=== PATIENT | female | born 1980 | race African-American/Black ===

== ENCOUNTER → 2017-01-14 | Outpatient (CLI) | payer OTHER ==
[~2017-01-14] MED LIST: ACET50TA PO; COLA100C5 PO; IBUP-1114 PO; INSUNSD SC; INSURSD SC; OXYC1TAB23 PO; PRENTAB9 PO; ZOFR20TA PO
[2017-01-14 13:41] LABS: MEAN CORPUSCULAR HEMOGLOBIN 27.9 pg (27.0-33.0); MEAN CORPUSCULAR HGB CONC 33.1 g/dl (32.0-36.5); MEAN CORPUSCULAR VOLUME 84.1 fl (80.0-96.0); RED CELL DISTRIBUTION WIDTH 15.4 % (11.5-14.5); WHITE BLOOD COUNT 7.9 K/mm3 (4.0-10.0)
[2017-01-14 13:57] LABS: ALT/SGPT 13 U/L (12-78); AST/SGOT 12 U/L (15-37); BILIRUBIN,TOTAL 0.2 MG/DL (0.2-1.0); CREATININE FOR GFR 0.61 MG/DL (0.55-1.02); GLOMERULAR FILTRATION RATE > 60.0 (>60); URIC ACID 4.4 MG/DL (2.6-6.0)
== END ==
LOC: M LAB 12:43
PROVIDERS: ATTEND Advanced Practice Midwife
DX: O13.3 Gestational [pregnancy-induced] hypertension without significant proteinuria, third trimester (principal); Z3A.00 Weeks of gestation of pregnancy not specified

== ENCOUNTER 2017-01-18 11:05 | Observation (INO) | payer OTHER ==
[~2017-01-18] VITALS: Ht 154.9 cm; Wt 97.0 kg
[2017-01-18 12:12] VITALS: BP 114/72
[2017-01-18 12:13] VITALS: BP 121/80
[2017-01-18 12:23] LABS: MEAN CORPUSCULAR HEMOGLOBIN 27.5 pg (27.0-33.0); MEAN CORPUSCULAR HGB CONC 32.3 g/dl (32.0-36.5); RED CELL DISTRIBUTION WIDTH 15.5 % (11.5-14.5); WHITE BLOOD COUNT 7.6 K/mm3 (4.0-10.0)
[2017-01-18 12:28] VITALS: BP 121/80
[2017-01-18] MEDS ORDERED: INSUNSD SC (12:37)
[2017-01-18] MEDS ORDERED: ACET50TA PO (12:37)
[2017-01-18] MEDS ORDERED: INSURSD SC (12:37)
[2017-01-18] MEDS: HumuLIN R (REGULAR) INSULIN (NovoLIN R) **100U/ML** PER UNIT SQ SCH (12:42)
[2017-01-18] MEDS: HumuLIN N INSULIN (NovoLIN N) PER UNIT SC SCH (12:42)
[2017-01-18 12:43] VITALS: BP 119/73
[2017-01-18 13:02] LABS: ALT/SGPT 18 U/L (12-78); AST/SGOT 15 U/L (15-37); BILIRUBIN,TOTAL 0.2 MG/DL (0.2-1.0); CREATININE FOR GFR 0.57 MG/DL (0.55-1.02); GLOMERULAR FILTRATION RATE > 60.0 (>60); URIC ACID 5.5 MG/DL (2.6-6.0)
[2017-01-18] MEDS: ACETAMINOPHEN 500 MG TAB PO PRN ×2 (13:11→20:22)
[2017-01-18 17:30] VITALS: BP 119/75
[2017-01-18] MEDS ORDERED: HumuLIN R (REGULAR) INSULIN (NovoLIN R) **100U/ML** PER UNIT SQ SCH (18:00)
[2017-01-18] MEDS ORDERED: HumuLIN N INSULIN (NovoLIN N) PER UNIT SC SCH ×2 (18:00→21:00)
--- NOTE | 2017-01-18 20:39 | IPNPDOC ---
Text Note Date of Service The patient was seen on 01/18/17. NOTE SUBJECTIVE: Patient is a 36 year old female who is a at 36.6 weeks gestation with and MAYRA of 02/09/2017 based off of LMP and consistent with her 1st trimester ultrasound. She initiated care in her 1st trimester at [facility]. Her has been complicated by: obesity, Type II diabetes-now insulin controlled, and preeclampsia. Patient's last 24 hour urine showed a total protein of 378. She presented to the office today for a NST, which was reactive , with another elevated BP and complaints of a headache. She reports this headache for the last 3 days that is now not resolved with Tylenol. States today the pain has caused her to be very nauseous and she has been unable to eat. Denies leaking of fluid or vaginal bleeding. Reports active movement. Denies visual changes or epigastric pain. OBJECTIVE: General: Alert and oriented x3. Respiratory: rate regular. No use of accessory muscles. Abdomen: Gravid. Not tender with palpation. Extremities: bilateral generalized edema in lower ankles and feet. Shins +1 pitting edema. Reflexes 2+. VS: see below. Labs: see below. ASSESSMENT: IUP at 36.6 weeks gestation, Type II diabetes: insulin controlled, preeclampsia PLAN: Patient admitted for a 23 hour observation. Saline lock to be placed. 2200 ADA diet. Insulin ordered. Fasting an 2 hour post prandial fingersticks to be done. OOB ad neftali. monitoring and vital signs per policy. Labs ordered for now and in am. Patient to start [address] Boston consulted for plan of care. Education done with patient that if her labs continue to change, her BPs get worse, or her symptoms get worse, that an induction of labor may be the safest course. Reviewed risks/benefits/ and alternatives with patient and if an IOL is recommended. VS,Fishbone, I+O VS, Fishbone, I+O Laboratory Tests 01/18/17 11:41 Red Blood Count 3.90 L, Mean Corpuscular Volume 85.0, Mean Corpuscular Hemoglobin 27.5, Mean Corpuscular Hemoglobin Concent 32.3, Red Cell Distribution Width 15.5 H, Aspartate Amino Transf (AST/SGOT) 15, Alanine Aminotransferase (ALT/SGPT) 18, Lactate Dehydrogenase 206, Total Bilirubin 0.2, Uric Acid 5.5 Item Value Date Time Creatinine 0.57 MG/DL 01/18/17 1141 Glomerular Filtration Rate > 60.0 01/18/17 1141 Uric Acid 5.5 MG/DL 01/18/17 1141 Total Bilirubin 0.2 MG/DL 01/18/17 1141 Aspartate Amino Transf (AST/SGOT) 15 U/L 01/18/17 1141 Alanine Aminotransferase (ALT/SGPT) 18 U/L 01/18/17 1141 Lactate Dehydrogenase 206 U/L 01/18/17 1141 Item Value Date Time Urine Random Creatinine 259.0 MG/DL 01/18/17 1141 Urine Random Total Protein 55.3 MG/DL H 01/18/17 1141 Vital Signs Date Time Temp Pulse Resp B/P (MAP) Pulse Ox O2 Delivery O2 Flow Rate FiO2 01/18/17 17:30 74 119/75 (90) JEFFY MORRELL CNM Jan 18, 2017 20:39
[2017-01-18 20:45] VITALS: BP 125/74
[2017-01-19] VITALS (7 sets, daily range): BP systolic 115–126; BP diastolic 57–76
[2017-01-19 06:46] LABS: MEAN CORPUSCULAR HEMOGLOBIN 27.2 pg (27.0-33.0); MEAN CORPUSCULAR HGB CONC 32.2 g/dl (32.0-36.5); MEAN CORPUSCULAR VOLUME 84.3 fl (80.0-96.0); RED CELL DISTRIBUTION WIDTH 15.8 % (11.5-14.5); WHITE BLOOD COUNT 6.9 K/mm3 (4.0-10.0)
[2017-01-19 06:54] LABS: ALT/SGPT 15 U/L (12-78); AST/SGOT 11 U/L (15-37); BILIRUBIN,TOTAL 0.2 MG/DL (0.2-1.0); CREATININE FOR GFR 0.63 MG/DL (0.55-1.02); GLOMERULAR FILTRATION RATE > 60.0 (>60); URIC ACID 5.2 MG/DL (2.6-6.0)
[2017-01-19] MEDS: ACETAMINOPHEN 500 MG TAB PO PRN (07:40)
[2017-01-19] MEDS: HumuLIN N INSULIN (NovoLIN N) PER UNIT SC SCH (08:31)
[2017-01-19] MEDS: HumuLIN R (REGULAR) INSULIN (NovoLIN R) **100U/ML** PER UNIT SQ SCH (08:31)
[2017-01-19] MEDS ORDERED: NORCO, ANEXSIA 5/325MG TABLET (HYDROcodone/ACETAMINOPHEN) PO ONE (12:15)
--- NOTE | 2017-01-19 20:27 | DS.PDOC ---
Discharge Summary General Date of Admission Jan 18, 2017 at 13:30 Date of Discharge December 19, 2016 at 1730. Attending Physician: JEFFY MORRELL [facility] Specialist/Consultants Involve: Jose Boston DO Discharge Summary PROCEDURES PERFORMED DURING STAY: None. ADMITTING 23 hour OBS DIAGNOSES: 1. IUP at 36.6 weeks gestation. 2. Type II diabetes-insulin. 3. Preeclampsia DISCHARGE DIAGNOSES: 1. IUP at 37 weeks gestation 2. Type II diabetes-insulin. 3. Preeclampsia. COMPLICATIONS/CHIEF COMPLAINT: Preeclampsia-headache HISTORY OF PRESENT ILLNESS: Patient is a who is now 37 weeks gestation. She was sent to L&D with complaints of a headache and a slightly elevated BP. She has been monitored and repeat labs and a 24 hour urine were done. The patient continued to complain of a constant, dull headache. She has taken Tylenol with minimal relief. Her headache is a constant 5/10 and decreases to a 3/10 on the pain scale. She refused [place] to help with her headache. She denies visual changes or epigastric pain. Her labs have changed very little in [address] Boston consulted on plan of care and the decision was made to have patient discharged to home and for her to follow up on Monday for evaluation and a repeat BP. Patient has not had one elevated BP since she has been on L&D for observation. DISCHARGE MEDICATIONS: Please see below. ALLERGIES: Please see below. PHYSICAL EXAMINATION ON DISCHARGE: VITAL SIGNS: Please see below. GENERAL: Awake and alert. RESPIRATORY EXAMINATION: Respirations regular. No use of accessory muscles. ABDOMINAL EXAMINATION: Gravid EXTREMITIES: Bilateral generalized edema in feet and ankles. +1 pitting edema on shins. LABORATORY DATA: Please see below. ACTIVITY: As tolerated. DIET: carbohydrate controlled. DISCHARGE INSTRUCTIONS: 1. Discharge to home. 2. Saline lock to be removed. Patient to follow up on Monday for OB appointment. 3. Extensive education done with patient in regards to worsening or changing symptoms. Reviewed and reiterated preeclamptic signs and symptoms. Education done on access to care, labor signs and symptoms, kick counts, vaginal bleeding, and other danger signs patient needs to notify providers of. Patient verbalized understanding of all information that was provided. DISCHARGE CONDITION: Stable. Vital Signs/I&Os Vital Signs Date Time Temp Pulse Resp B/P (MAP) Pulse Ox O2 Delivery O2 Flow Rate FiO2 01/19/17 17:23 63 120/75 (90) 01/19/17 14:25 18 01/19/17 12:21 97.7 Laboratory Data Labs 24H Laboratory Tests 2 01/18/17 20:08: Bedside Glucose (Misc Panel) 125H 01/19/17 06:23: Glomerular Filtration Rate > 60.0, Creatinine 0.63, Aspartate Amino Transf (AST/ SGOT) 11L, Alanine Aminotransferase (ALT/SGPT) 15, Lactate Dehydrogenase 171, Total Bilirubin 0.2, Uric Acid 5.2 01/19/17 09:54: Bedside Glucose (Misc Panel) 138H 01/19/17 11:15: Urine Total Volume 1800, Urine Creatinine 96.6, Urine Creatinine 24 Hour 1738.8 , Urine Total Protein 24 Hour 388.8H, Urine Total Protein 21.6H 01/19/17 15:00: Bedside Glucose (Misc Panel) 127H Item Value Date Time Urine Total Volume 1800 ML 01/19/17 1115 Urine Creatinine 96.6 MG/DL 01/19/17 1115 Urine Creatinine 24 Hour 1738.8 MG/24HR 01/19/17 1115 Urine Total Protein 24 Hour 388.8 MG/24HR H 01/19/17 1115 Urine Total Protein 21.6 MG/DL H 01/19/17 1115 Item Value Date Time Creatinine 0.63 MG/DL 01/19/17 0623 Glomerular Filtration Rate > 60.0 01/19/17 0623 Uric Acid 5.2 MG/DL 01/19/17 0623 Total Bilirubin 0.2 MG/DL 01/19/17 0623 Aspartate Amino Transf (AST/SGOT) 11 U/L L 01/19/17 0623 Alanine Aminotransferase (ALT/SGPT) 15 U/L 01/19/17 0623 Lactate Dehydrogenase 171 U/L 01/19/17 0623 CBC/BMP Laboratory Tests 01/19/17 06:23 Red Blood Count 3.74 L, Mean Corpuscular Volume 84.3, Mean Corpuscular Hemoglobin 27.2, Mean Corpuscular Hemoglobin Concent 32.2, Red Cell Distribution Width 15.8 H, Aspartate Amino Transf (AST/SGOT) 11 L, Alanine Aminotransferase (ALT/SGPT) 15, Lactate Dehydrogenase 171, Total Bilirubin 0.2, Uric Acid 5.2 FSBS Laboratory Tests Test 01/18/17 20:08 01/19/17 09:54 01/19/17 15:00 Range/Units Bedside Glucose (Misc Panel) 125 138 127 70-105 MG/DL Discharge Medications Miscellaneous Medications Acetaminophen (Mapap) 500 Mg Tab, 1,000 MG PO, (Reported) Insulin Human NPH (Humulin N) 1 Units/0.01 Ml Susp, 12 UNITS SC, (Reported) Insulin Human Regular (Humulin R) 1 Units/0.01 Ml Soln, 30 UNITS SC, (Reported) Allergies Coded Allergies: Metronidazole (Verified Allergy, Intermediate, 01/18/17) Povidone Iodine (Verified Allergy, Intermediate, 01/18/17) Sulfa Antibiotics (Verified Allergy, Intermediate, 01/18/17) JEFFY MORRELL CNM Jan 19, 2017 20:17
--- NOTE | 2017-01-19 20:40 | IPNPDOC ---
Text Note Date of Service The patient was seen on 01/19/17 at 0830. NOTE Subjective: Patient reports she still has a headache. The headache has not changed in intensity or location. Reports pain 3/10 now after taking 1000 mg of Tylenol PO. Denies visual changes. Denies contractions. Reports active movement. Denies leaking of fluid or vaginal bleeding. Objective: VS stable. Category I FHR tracing. Neuro: A+Ox3. Respiratory: lungs clear bilaterally. No use of accessory muscles. Regular rate. Abdomen: gravid. Bilateral extremities: generalized edema with 1+ pitting on shins. Reflexes: 2+ patellar. Assessment: IUP at 37 weeks gestation, type II diabetes: insulin, preeclampsia Plan: Awaiting 24 hour urine. Reviewed plan, which was collaborated with Dr. Boston, with patient that if 24 hour urine is worse than it was 5 days ago that we would talk about induction of labor due to worsening preeclampsia. JEFFY MORRELL CNM Jan 19, 2017 20:40
== END 2017-01-19 17:25 | disposition home or self-care (01) ==
LOC: M LDO 11:05 → UNDOADMOB 13:30 → M LDI 13:30 → UNDODISOB 01-19 17:25
PROVIDERS: ADMIT Advanced Practice Midwife; ATTEND Advanced Practice Midwife
DX: O14.03 Mild to moderate pre-eclampsia, third trimester (principal); O24.113 Pre-existing type 2 diabetes mellitus, in pregnancy, third trimester; Z3A.36 36 weeks gestation of pregnancy; Z79.4 Long term (current) use of insulin; Z88.2 Allergy status to sulfonamides; Z88.3 Allergy status to other anti-infective agents; Z88.8 Allergy status to other drugs, medicaments and biological substances

== ENCOUNTER 2017-01-20 07:04 | Inpatient (IN) | payer OTHER ==
[2017-01-20] VITALS (21 sets, daily range): BP systolic 89–140; BP diastolic 53–87
[~2017-01-20] VITALS: Ht 154.9 cm; Wt 96.0 kg
[~2017-01-20 07:04] MED LIST changes: -COLA100C5 PO; -IBUP-1114 PO; -OXYC1TAB23 PO; -PRENTAB9 PO; -ZOFR20TA PO
[2017-01-20] MEDS ORDERED: INSULIN IV RATE CHANGE DOCUMENTATION ML/HR XX SCH (08:15)
[2017-01-20 08:38] LABS: MEAN CORPUSCULAR HEMOGLOBIN 27.2 pg (27.0-33.0); MEAN CORPUSCULAR HGB CONC 32.5 g/dl (32.0-36.5); MEAN CORPUSCULAR VOLUME 83.6 fl (80.0-96.0); RED CELL DISTRIBUTION WIDTH 15.8 % (11.5-14.5); WHITE BLOOD COUNT 7.7 K/mm3 (4.0-10.0)
[2017-01-20] MEDS ORDERED: OXYTOCIN DRIP 30 UNITS in APPROPRIATE DILUENT 1 EA IV SCH ×2 (08:45→15:42)
[2017-01-20] MEDS: PRENATAL VITAMINS CHEWABLE TABLET PO SCH (09:00)
[2017-01-20] MEDS ORDERED: INSULIN HUMAN REGULAR 100 UNITS in NS 99 ML IV SCH (09:00)
[2017-01-20 09:03] LABS: ALBUMIN 2.4 GM/DL (3.2-5.2); ALBUMIN/GLOBULIN RATIO 0.75 (1.00-1.93); ALKALINE PHOSPHATASE 137 U/L (45-117); ALT/SGPT 14 U/L (12-78); ANION GAP 11 MEQ/L (8-16); AST/SGOT 14 U/L (15-37); BILIRUBIN,TOTAL 0.2 MG/DL (0.2-1.0); BLOOD UREA NITROGEN 9 MG/DL (7-18); CALCIUM LEVEL 8.2 MG/DL (8.5-10.1); CARBON DIOXIDE LEVEL 20 MEQ/L (21-32); CHLORIDE LEVEL 111 MEQ/L (98-107); GLOMERULAR FILTRATION RATE > 60.0 (>60); GLUCOSE, FASTING 71 MG/DL (70-105); POTASSIUM SERUM 4.1 MEQ/L (3.5-5.1); SODIUM LEVEL 142 MEQ/L (136-145); TOTAL PROTEIN 5.6 GM/DL (6.4-8.2)
[2017-01-20] MEDS ORDERED: FENTANYL 2MCG/ML ROPIVACAINE 0.2% IN 0.9% NACL 200ML IVBAG As Ordered ONE (09:20)
[2017-01-20] MEDS: NS 1,000 ML IV SCH ×2 (09:29→12:59)
[2017-01-20] MEDS ORDERED: ePHEDrine SULFATE 25 MG/5 ML(5MG/ML) SYRINGE IV PRN (10:00)
[2017-01-20] MEDS ORDERED: FENTANYL/ROPIVACAINE/NACL BAG 200 ML EPIDURAL SCH (10:00)
[2017-01-20] MEDS ORDERED: ONDANSETRON 4MG/2ML VIAL (J2405) IV PRN ×2 (10:00→15:45)
[2017-01-20] MEDS ORDERED: LACTATED RINGER'S 1000 ML IV PRN (10:00)
[2017-01-20] MEDS ORDERED: NALOXONE INJ 0.4 MG/1 ML VIAL (J2310) IV PRN (10:00)
[2017-01-20] MEDS ORDERED: diphenhydrAMINE INJ 50MG/ML VIAL (J1200) IV PRN (10:00)
[2017-01-20] MEDS ORDERED: EPIDURAL/PCA KEYS XX PRN (10:00)
[2017-01-20] MEDS ORDERED: EPIDURAL COMMENT XX SCH (10:00)
[2017-01-20] MEDS ORDERED: REFRIGERATOR IV KEYS XX PRN (10:00)
[2017-01-20] MEDS ORDERED: METHYLERGONOVINE MALEATE 0.2 MG/ML VIAL (J2210) As Ordered ONE (15:19)
[2017-01-20 15:28] LABS: CORD GAS ABE A -1.8; CORD GAS HCO3 A 26.1 MEQ/L; CORD GAS O2 SAT A 62.7 %; CORD GAS PCO2 A 58.2 mmHg; CORD GAS PH A 7.27 UNITS; CORD GAS PO2 A 27.8 mmHg; CORD GAS SBC A 22.2 MEQ/L; CORD GAS TCO2 A 27.9 MEQ/L
[2017-01-20 15:31] LABS: CORD GAS HCO3 V 21.9 MEQ/L; CORD GAS O2 SAT V 83.5 %; CORD GAS PCO2 V 42.9 mmHg; CORD GAS PH V 7.326 UNITS; CORD GAS PO2 V 40.4 mmHg; CORD GAS SBC V 20.9 MEQ/L; CORD GAS TCO2 V 23.2 MEQ/L
[2017-01-20] MEDS ORDERED: DOCUSATE SODIUM 100 MG CAP PO PRN (15:45)
[2017-01-20] MEDS ORDERED: MEASLES,MUMPS,RUBELLA VACCINE INJ (MMR-II) (90707) SC SCH (15:45)
[2017-01-20] MEDS ORDERED: RHOGAM 300 MCG (1500 IU) INJ (J2790) IM SCH (15:45)
[2017-01-20] MEDS ORDERED: DIBUCAINE 1% OINTMENT 30GM TOP PRN (15:45)
[2017-01-20] MEDS ORDERED: ANUSOL HC CREAM 30GM TOP PRN (15:45)
[2017-01-20] MEDS ORDERED: METHYLERGONOVINE MALEATE 0.2 MG/ML VIAL (J2210) IM STA (16:20)
[2017-01-20] MEDS: METHYLERGONOVINE MALEATE 0.2 MG TAB PO SCH ×2 (16:57→21:00)
[2017-01-20] MEDS: ACETAMINOPHEN 500 MG TAB PO PRN ×2 (16:57→23:45)
[2017-01-20] MEDS: metFORMIN (GLUCOPHAGE) 1000 MG TABLET PO SCH (18:14)
[2017-01-20] MEDS: IBUPROFEN 800 MG TAB PO PRN (19:33)
--- NOTE | 2017-01-20 22:47 | HPE ---
DATE OF ADMISSION: 01/20/2017 HISTORY OF PRESENT ILLNESS: Frances is a 36-year-old female 9, para 4-0-4-4 with an estimated date of confinement (EDC) of 02/09/2017, estimated gestational age (EGA) 37-2/7 weeks gestation, who has a longstanding history of type 2 diabetes which was poorly controlled during this . She presented to labor and delivery with spontaneous rupture of membranes. The patient in the last week or two of her has also developed hypertension which has been ruled out for preeclampsia. Her last 24-hour urine collection was approximately 347. Upon admission, no bleeding. Good movement. Her record reviewed. complicated by type 2 diabetes and also mild preeclampsia. LABORATORY DATA: Blood type is B positive, rubella immune, hepatitis negative, HIV negative, GC/chlamydia negative, GBS negative. PAST MEDICAL HISTORY: Significant for history of mastitis, -induced hypertension, rule out preeclampsia. PAST SURGICAL HISTORY: T&A. SOCIAL HISTORY: The patient is . Denies any alcohol, drugs or cigarette smoking. REVIEW OF SYSTEMS: Unremarkable. FAMILY HISTORY: Significant for hypertension, diabetes. MEDICATIONS: vitamins, insulin fast-acting and slow release. Use of sulfa drugs and Flagyl. PHYSICAL EXAMINATION: Obese female in no acute distress. ABDOMEN: Soft, nontender, nondistended. EXTREMITIES: No clubbing, cyanosis. Plus one to two lower extremity edema with deep tendon reflexes (DTR) 2/4 bilaterally. VAGINAL EXAM: Gross rupture of membrane, clear fluid, 1-2 cm dilated. 50% effaced cervix, fetus in vertex position. Tracing reviewed. category one tracing with irregular contractions. ASSESSMENT: 1. Intrauterine at 37 weeks gestation with gross rupture of membrane. 2. Type 2 diabetes, currently on insulin, poorly controlled. 3. -induced hypertension (PIH) with superimposed preeclampsia. PLAN: Admit the patient to labor and delivery. Given gross rupture of membrane, would proceed with Pitocin and Higgins bulb induction. Risk and benefit discussed with the patient. Insulin drip will be started to help maintain her blood sugars. Pain management also discussed. The patient opts for an epidural. Will continue to monitor. Anticipate delivery. NICHOL[facility]YES MEMORIAL HOSPITALJosi
[2017-01-21] MEDS: IBUPROFEN 800 MG TAB PO PRN ×3 (04:35→21:30)
[2017-01-21 05:40] VITALS: BP 124/72
[2017-01-21 06:49] LABS: MEAN CORPUSCULAR HEMOGLOBIN 27.5 pg (27.0-33.0); MEAN CORPUSCULAR HGB CONC 32.5 g/dl (32.0-36.5); MEAN CORPUSCULAR VOLUME 84.6 fl (80.0-96.0); RED CELL DISTRIBUTION WIDTH 15.8 % (11.5-14.5); WHITE BLOOD COUNT 6.5 K/mm3 (4.0-10.0)
[2017-01-21 07:07] LABS: ANION GAP 10 MEQ/L (8-16); BLOOD UREA NITROGEN 12 MG/DL (7-18); CALCIUM LEVEL 8.1 MG/DL (8.5-10.1); CARBON DIOXIDE LEVEL 22 MEQ/L (21-32); CHLORIDE LEVEL 111 MEQ/L (98-107); CREATININE FOR GFR 0.78 MG/DL (0.55-1.02); GLOMERULAR FILTRATION RATE > 60.0 (>60); GLUCOSE, FASTING 89 MG/DL (70-105); POTASSIUM SERUM 3.8 MEQ/L (3.5-5.1); SODIUM LEVEL 143 MEQ/L (136-145)
[2017-01-21] MEDS: metFORMIN (GLUCOPHAGE) 1000 MG TABLET PO SCH ×2 (07:34→18:22)
[2017-01-21] MEDS: PRENATAL VITAMINS CHEWABLE TABLET PO SCH (07:34)
[2017-01-21] MEDS: ONDANSETRON 4 MG TAB (S0181) PO PRN ×3 (07:57→18:22)
[2017-01-21] MEDS: METHYLERGONOVINE MALEATE 0.2 MG TAB PO SCH ×2 (09:22→14:10)
--- NOTE | 2017-01-21 10:29 | DN ---
DATE OF DELIVERY: 01/20/2017 Frances is a 36-year-old female, 9, para 4-0-4-4, who is admitted at 37 weeks' gestation with gross rupture of membranes. The patient has a history of type 2 diabetes, on insulin, not well controlled. She underwent a Higgins bulb Pitocin induction. Progressed to fully dilated. She then pushed and delivered a live female infant in right occiput anterior position with a nuchal cord times one. scores 9 and 9. weight 7 pounds 3 ounces. The placenta was delivered spontaneously. However, an extra lobe was found to be retained. 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 Manual extraction of pieces of the retained placenta was done, and the rest was then removed using an obstetrics (OB) curette. After removal of the lobe that stayed, there was still a small amount of retained placental tissue that could not be removed. However, the uterus was nice and firm with no excessive bleeding. One dose of Methergine was given prophylactically for bleeding. Good hemostasis noted. Estimated blood loss was 350 mL. The patient did receive Pitocin right after delivery of the placenta and the Methergine to control further bleeding.
[2017-01-21] MEDS: ACETAMINOPHEN 500 MG TAB PO PRN ×2 (14:10→22:47)
[2017-01-21 18:00] VITALS: BP 131/68
[2017-01-21] MEDS ORDERED: PERCOCET 5MG/325MG TAB PO PRN ×2 (23:15)
[2017-01-22 06:12] VITALS: BP 124/73
[2017-01-22] MEDS: ONDANSETRON 4 MG TAB (S0181) PO PRN (07:40)
[2017-01-22] MEDS: metFORMIN (GLUCOPHAGE) 1000 MG TABLET PO SCH (07:40)
[2017-01-22] MEDS: PRENATAL VITAMINS CHEWABLE TABLET PO SCH (07:40)
[2017-01-22] MEDS ORDERED: ADACEL/BOOSTRIX VACCINE (DIPHTH/PERTUSS/ACELL/TETANUS)0.5ML SYR (90715) IM ONE (09:00)
[2017-01-22] MEDS ORDERED: PRENTAB9 PO (12:29)
[2017-01-22] MEDS ORDERED: COLA100C5 PO (12:30)
[2017-01-22] MEDS ORDERED: IBUP-1114 PO (12:30)
[2017-01-22] MEDS ORDERED: ZOFR20TA PO (12:31)
[2017-01-22] MEDS ORDERED: OXYC1TAB23 PO ×2 (12:32→12:33)
== END 2017-01-22 12:45 | disposition home or self-care (01) | DRG 541 ==
LOC: M LDO 07:04 → M LDI 07:37 → M OBS 18:01
PROVIDERS: ADMIT Advanced Practice Midwife; ATTEND Obstetrics & Gynecology
PROC: 10E0XZZ Delivery of Products of Conception, External Approach (ICD-10-PCS; principal; 2017-01-20)
PROC: 10D17ZZ Extraction of Products of Conception, Retained, Via Natural or Artificial Opening (ICD-10-PCS; 2017-01-20)
DX: O24.12 Pre-existing type 2 diabetes mellitus, in childbirth (principal); E11.65 Type 2 diabetes mellitus with hyperglycemia; O14.04 Mild to moderate pre-eclampsia, complicating childbirth; Z3A.37 37 weeks gestation of pregnancy; O69.82X0 Labor and delivery complicated by other cord entanglement, without compression, not applicable or unspecified; O73.1 Retained portions of placenta and membranes, without hemorrhage; Z79.4 Long term (current) use of insulin; Z37.0 Single live birth

== ENCOUNTER → 2020-03-20 | Outpatient (REF) | payer OTHER ==
[~2020-03-20] MED LIST changes: -ACET50TA PO; +COLA100C5 PO; +IBUP-1114 PO; +MAPA500T2 PO; +OXYC1TAB23 PO; +PRENTAB9 PO; +ZOFR4TAB16 PO
[2020-03-20 19:48] LABS: MALB URINE SIEMENS 8.8 MG/L; MAU/CREAT RATIO 6.6 MCG/MG (0.0-30.0)
== END ==
LOC: M LAB REF 16:40
PROVIDERS: ATTEND Nurse Practitioner Family
DX: E11.65 Type 2 diabetes mellitus with hyperglycemia (principal)

== ENCOUNTER → 2021-05-20 | Outpatient (REF) | payer OTHER ==
[2021-05-20 17:14] LABS: BASO # 0.1 10^3/uL (0.0-0.2); BASO % 0.5 % (0.0-1.0); EOS % 0.4 % (0.0-3.0); HEMATOCRIT 39.9 % (36.0-47.0); HEMOGLOBIN 12.4 g/dl (12.0-15.5); LYMPH # 1.7 10^3/uL (1.5-5.0); LYMPH % 17.9 % (24.0-44.0); MEAN CORPUSCULAR HEMOGLOBIN 26.2 pg (27.0-33.0); MEAN CORPUSCULAR HGB CONC 31.1 g/dl (32.0-36.5); MEAN CORPUSCULAR VOLUME 84.2 fl (80.0-96.0); MONO # 0.6 10^3/uL (0.0-0.8); MONO % 5.8 % (2.0-8.0); NEUTROPHILS % 74.7 % (36.0-66.0); PLATELET COUNT, AUTOMATED 213 10^3/uL (150-450); RED BLOOD COUNT 4.74 10^6/uL (4.00-5.40); WHITE BLOOD COUNT 9.4 10^3/uL (4.0-10.0)
[2021-05-20 17:56] LABS: HEMOGLOBIN A1c 9.2 %
[2021-05-20 18:27] LABS: ALBUMIN 3.6 GM/DL (3.2-5.2); ALT/SGPT 31 U/L (12-78); BILIRUBIN,TOTAL 0.2 MG/DL (0.2-1.0); BLOOD UREA NITROGEN 11 MG/DL (7-18); CALCIUM LEVEL 8.9 MG/DL (8.5-10.1); CARBON DIOXIDE LEVEL 25 MEQ/L (21-32); CHLORIDE LEVEL 105 MEQ/L (98-107); CREATININE FOR GFR 0.84 MG/DL (0.55-1.30); FREE T4 1.09 NG/DL (0.76-1.46); GLOMERULAR FILTRATION RATE > 60.0 (>60); GLUCOSE, FASTING 229 MG/DL (70-100); HCG, SERUM QUANTITATIVE 24625 MIU/ML; HEPATITIS C VIRUS ABY INDEX < 0.0 INDEX (<0.8); HIV 1&2 SCREEN CENTAUR NEGATIVE (NEGATIVE); POTASSIUM SERUM 3.6 MEQ/L (3.5-5.1); SODIUM LEVEL 139 MEQ/L (136-145); TOTAL PROTEIN 6.7 GM/DL (6.4-8.2)
== END ==
LOC: M LAB REF 16:29
PROVIDERS: ATTEND Obstetrics & Gynecology
DX: O36.80X0 Pregnancy with inconclusive fetal viability, not applicable or unspecified (principal); Z32.01 Encounter for pregnancy test, result positive

== ENCOUNTER → 2021-06-03 | Outpatient (CLI) | payer OTHER ==
--- NOTE | 2021-06-03 10:18 | PFTRPT ---
Site: [facility], [address] [place] [address], [id number] ID: [id number] Name: SALLIE PINK Visit Date: 06/03/2021 Second ID: [id number] Referring Doctor: MANJINDER MARTIN Reviewing Doctor: Kg Michael MD Undertaker Helper: Augusto ANAYA RRT Age: 40 : 1980 Sex: Female Race: Black Height: 61.00 Inches Weight: 209.00 Lbs BSA: 1.92 Order IDs: [id number] Requested Test(s): <RESP-PFT.PFT B/A> Diagnosis: R06.00 test meet the ATS standards for acceptability and repeatability. Pt was given four puffs of albuterol for post bronchodilator. Review Status: Not Reviewed Pre-Bronch Post-Bronch Pred Actual %Pred Actual %Chng SPIROMETRY FVC (L) 2.78 3.01 108 3.18 5 FEV1 (L) 2.31 2.38 103 2.54 6 FEV1/FVC (%) 84 79 94 80 FEF 25% (L/sec) 5.18 3.85 74 4.12 6 FEF 50% (L/sec) 4.25 2.36 55 2.93 24 FEF 75% (L/sec) 1.70 1.01 59 1.39 37 FEF 25-75% (L/sec) 2.68 2.17 80 2.47 13 FEF Max (L/sec) 6.18 5.49 88 4.30 -21 FIVC (L) 3.09 3.23 4 FIF 50% (L/sec) 4.06 3.06 75 2.15 -29 FIF Max (L/sec) 3.31 3.38 2 MVV (L/min) 98 88 89 Expiratory Time (sec) 6.65 6.94 4 Back Extrap Vol (L) 0.06 0.07 16 Time To FEFmax (sec) 0.085 0.122 42 LUNG VOLUMES SVC (L) 3.19 3.19 99 IC (L) 2.08 2.83 136 ERV (L) 1.11 0.36 32 TGV (L) 2.52 2.00 79 RV (Pleth) (L) 1.41 1.64 116 TLC (Pleth) (L) 4.60 4.83 104 RV/TLC (Pleth) (%) 30 34 113 DIFFUSION DLCOunc (ml/min/mmHg) 22.79 21.26 93 DLCOcor (ml/min/mmHg) 22.79 22.80 100 DL/VA (ml/min/mmHg/L) 4.95 5.49 110 VA (L) 4.60 4.15 90 BHT (sec) 9.90 IVC (L) 3.13 TLC (SB) (L) 4.30 AIRWAYS RESISTANCE Raw (cmH2O/L/s) 1.86 1.06 56 Gaw (L/s/cmH2O) 1.03 0.95 91 sRaw (cmH2O*s) 4.76 2.25 47 sGaw (1/cmH2O*s) 0.20 0.45 222 BLOOD GASES Hgb (gm/dL) 11.4
== END ==
LOC: M CARPUL 09:37
PROVIDERS: ATTEND Nurse Practitioner Family
DX: R06.00 Dyspnea, unspecified (principal)

== ENCOUNTER → 2021-06-17 | Outpatient (REF) | payer OTHER | LOC: M LAB REF 12:58 | PROVIDERS: ATTEND Advanced Practice Midwife | DX: Z34.81 Encounter for supervision of other normal pregnancy, first trimester (principal) ==

== ENCOUNTER → 2021-07-12 | Outpatient (REF) | payer OTHER ==
[~2021-07-12] MED LIST changes: +ALBU83IN INH; +ASPI-226 PO; +BASA100I SQ; +BUDE0.5S6 INH; +BUDE10.2 INH; +GABA-1171 PO; +GLUC1TES2 XX; +INSU1MIS20 SC; +INSUHUMDS SC; +LANC30MI XX; +METF-839 PO; +ONDA-83 PO; +PEN1MIS22 SC
[2021-07-12 09:33] LABS: URINE TOTAL PROTEIN 12.4 MG/DL (0-12)
== END ==
LOC: M LAB REF 08:58
PROVIDERS: ATTEND Advanced Practice Midwife
DX: O09.891 Supervision of other high risk pregnancies, first trimester (principal); Z3A.00 Weeks of gestation of pregnancy not specified

== ENCOUNTER → 2021-08-04 | Outpatient (CLI) | payer OTHER ==
[~2021-08-04] MED LIST changes: -ASPI-226 PO; -BUDE0.5S6 INH; -BUDE10.2 INH; -GABA-1171 PO; -GLUC1TES2 XX; -INSU1MIS20 SC; -INSUHUMDS SC; -LANC30MI XX; -ONDA-83 PO; -PEN1MIS22 SC
== END ==
LOC: M LABSMTC 12:24
PROVIDERS: ATTEND Anesthesiology
DX: Z01.818 Encounter for other preprocedural examination (principal); Z11.52 Encounter for screening for COVID-19

== ENCOUNTER 2021-08-05 10:29 | Inpatient (IN) | payer OTHER ==
[~2021-08-05] VITALS: Ht 162.6 cm; Wt 97.2 kg
[2021-08-05] VITALS (12 sets, daily range): BP systolic 82–174; BP diastolic 47–99
[~2021-08-05 10:29] MED LIST changes: +LIDOCAINE 1% MDV 20ML VIAL SQ PRN; +LR 1,000 ML IV ONE
[2021-08-05] MEDS ORDERED: propofoL 200 MG/20 ML VIAL As Ordered ONE (13:13)
[2021-08-05] MEDS ORDERED: MIDAZOLAM INJ 2MG/2ML VIAL (J2250 PER 1MG) As Ordered ONE ×3 (13:13→16:48)
[2021-08-05] MEDS ORDERED: fentaNYL 100 MCG/2 ML INJECTION As Ordered ONE ×3 (13:13→16:48)
[2021-08-05] MEDS ORDERED: LIDOCAINE 2% 100MG/5ML SDV (FOR ANES.) As Ordered ONE (13:13)
[2021-08-05 13:32] LABS: HEMATOCRIT 39.8 % (36.0-47.0); HEMOGLOBIN 12.4 g/dl (12.0-15.5); MEAN CORPUSCULAR HEMOGLOBIN 26.5 pg (27.0-33.0); MEAN CORPUSCULAR HGB CONC 31.2 g/dl (32.0-36.5); PLATELET COUNT, AUTOMATED 214 10^3/uL (150-450); RED BLOOD COUNT 4.68 10^6/uL (4.00-5.40); WHITE BLOOD COUNT 9.2 10^3/uL (4.0-10.0)
[2021-08-05] MEDS ORDERED: ALBUTEROL SULFATE 2.5 MG/0.5 ML INH NEB SOLN INH ONE (13:45)
[2021-08-05] MEDS ORDERED: LIDOCAINE W/EPINEPHRINE 1% 20ML VIAL As Ordered ONE (13:52)
[2021-08-05 13:56] LABS: BLOOD UREA NITROGEN 11 MG/DL (7-18); CARBON DIOXIDE LEVEL 29 MEQ/L (21-32); CHLORIDE LEVEL 106 MEQ/L (98-107); CREATININE FOR GFR 0.64 MG/DL (0.55-1.30); GLOMERULAR FILTRATION RATE > 60.0 (>60); GLUCOSE, FASTING 91 MG/DL (70-100); POTASSIUM SERUM 4.6 MEQ/L (3.5-5.1); SODIUM LEVEL 140 MEQ/L (136-145)
[2021-08-05 15:29] LABS: HEMATOCRIT 38.3 % (36.0-47.0); HEMOGLOBIN 11.7 g/dl (12.0-15.5); MEAN CORPUSCULAR HEMOGLOBIN 26.1 pg (27.0-33.0); MEAN CORPUSCULAR HGB CONC 30.5 g/dl (32.0-36.5); MEAN CORPUSCULAR VOLUME 85.3 fl (80.0-96.0); PLATELET COUNT, AUTOMATED 224 10^3/uL (150-450); RED BLOOD COUNT 4.49 10^6/uL (4.00-5.40); WHITE BLOOD COUNT 9.6 10^3/uL (4.0-10.0)
[2021-08-05] MEDS ORDERED: PROPOFOL 1,000 MG/100 ML VIAL As Ordered ONE (15:54)
[2021-08-05 16:00] LABS: BLOOD UREA NITROGEN 11 MG/DL (7-18); CALCIUM LEVEL 8.4 MG/DL (8.5-10.1); CARBON DIOXIDE LEVEL 27 MEQ/L (21-32); CHLORIDE LEVEL 107 MEQ/L (98-107); CREATININE FOR GFR 0.76 MG/DL (0.55-1.30); GLOMERULAR FILTRATION RATE > 60.0 (>60); GLUCOSE, FASTING 125 MG/DL (70-100); POTASSIUM SERUM 3.7 MEQ/L (3.5-5.1); SODIUM LEVEL 139 MEQ/L (136-145)
[2021-08-05] MEDS: MIDAZOLAM INJ 2MG/2ML VIAL (J2250 PER 1MG) IV PRN ×4 (16:35→17:50)
[2021-08-05] MEDS ORDERED: fentaNYL 100 MCG/2 ML INJECTION IV ONE (16:45)
[2021-08-05] MEDS ORDERED: LEVALBUTEROL 1.25 MG/0.5 ML CONCENTRATE NEB NEB PRN (16:45)
[2021-08-05] MEDS ORDERED: fentaNYL 100 MCG/2 ML INJECTION IV PRN (16:45)
[2021-08-05] MEDS ORDERED: REFRIGERATOR IV KEYS XX PRN (17:00)
[2021-08-05] MEDS ORDERED: propofoL 1,000 MG in IV 1 EA IV SCH ×2 (17:00)
[2021-08-05] MEDS ORDERED: NS 500 ML IV ONE (17:20)
[2021-08-05] MEDS: LR 1,000 ML IV SCH (17:25)
[2021-08-05] MEDS ORDERED: ACETAMINOPHEN 650 MG SUPP PR PRN (17:25)
[2021-08-05] MEDS: MIDAZOLAM HCL 100 MG in D5W 80 ML IV SCH ×2 (17:45→18:00)
[2021-08-05 17:55] LABS: ABG BASE EXCESS -2.8 (-2.0-2.0); ABG HCO3 25.1 MEQ/L (22.0-26.0); ABG O2 SATURATION 94.8 % (95.0-99.0); ABG PARTIAL PRESSURE CO2 57.7 mmHg (35.0-45.0); ABG PARTIAL PRESSURE O2 83.2 mmHg (75.0-100.0); ABG STANDARD HCO3 22.1 MEQ/L (22.0-26.0); ABG TOTAL CO2 26.9 MEQ/L (22.0-29.0); ABG pH (ARTERIAL) 7.256 UNITS (7.350-7.450)
[2021-08-05] MEDS: fentaNYL CITRATE 1,000 MCG in NS 80 ML IV SCH ×3 (18:10→19:24)
[2021-08-05] MEDS: PANTOPRAZOLE 40MG VIAL (C9113 PER 1) IV SCH (19:25)
[2021-08-05] MEDS: CHLORHEXIDINE GLUCONATE 0.12 % 15ML UDC (PERIDEX ORAL RINSE) MT SCH (20:49)
[2021-08-06] VITALS (17 sets, daily range): BP systolic 105–135; BP diastolic 62–92; O2SAT 98
[2021-08-06] MEDS: fentaNYL CITRATE 1,000 MCG in NS 80 ML IV SCH (03:35)
[2021-08-06] MEDS: LR 1,000 ML IV SCH (03:36)
[2021-08-06] MEDS: MIDAZOLAM HCL 100 MG in D5W 80 ML IV SCH (03:36)
[2021-08-06] MEDS: MIDAZOLAM INJ 2MG/2ML VIAL (J2250 PER 1MG) IV PRN ×2 (04:09→04:27)
[2021-08-06 05:06] LABS: BASO # 0.1 10^3/uL (0.0-0.2); BASO % 0.5 % (0.0-1.0); EOS # 0.1 10^3/uL (0.0-0.5); EOS % 0.6 % (0.0-3.0); HEMATOCRIT 36.7 % (36.0-47.0); HEMOGLOBIN 11.4 g/dl (12.0-15.5); LYMPH # 1.5 10^3/uL (1.5-5.0); MEAN CORPUSCULAR HEMOGLOBIN 26.1 pg (27.0-33.0); MEAN CORPUSCULAR HGB CONC 31.1 g/dl (32.0-36.5); MONO # 0.5 10^3/uL (0.0-0.8); MONO % 5.2 % (2.0-8.0); NEUTROPHILS # 7.1 10^3/uL (1.5-8.5); NEUTROPHILS % 76.3 % (36.0-66.0); PLATELET COUNT, AUTOMATED 201 10^3/uL (150-450); RED BLOOD COUNT 4.37 10^6/uL (4.00-5.40); WHITE BLOOD COUNT 9.3 10^3/uL (4.0-10.0)
[2021-08-06 05:31] LABS: ALT/SGPT 340 U/L (12-78); BILIRUBIN,TOTAL 0.4 MG/DL (0.2-1.0); BLOOD UREA NITROGEN 13 MG/DL (7-18); CALCIUM LEVEL 8.1 MG/DL (8.5-10.1); CARBON DIOXIDE LEVEL 28 MEQ/L (21-32); CHLORIDE LEVEL 106 MEQ/L (98-107); CREATININE FOR GFR 0.64 MG/DL (0.55-1.30); GLOMERULAR FILTRATION RATE > 60.0 (>60); GLUCOSE, FASTING 79 MG/DL (70-100); POTASSIUM SERUM 4.1 MEQ/L (3.5-5.1); SODIUM LEVEL 141 MEQ/L (136-145)
[2021-08-06 05:52] LABS: ABG BASE EXCESS 0.8 (-2.0-2.0); ABG HCO3 24.5 MEQ/L (22.0-26.0); ABG O2 SATURATION 98.8 % (95.0-99.0); ABG PARTIAL PRESSURE CO2 36.2 mmHg (35.0-45.0); ABG PARTIAL PRESSURE O2 143.3 mmHg (75.0-100.0); ABG STANDARD HCO3 25.2 MEQ/L (22.0-26.0); ABG TOTAL CO2 25.6 MEQ/L (22.0-29.0); ABG pH (ARTERIAL) 7.449 UNITS (7.350-7.450)
[2021-08-06] MEDS: PANTOPRAZOLE 40MG VIAL (C9113 PER 1) IV SCH (07:46)
[2021-08-06] MEDS: CHLORHEXIDINE GLUCONATE 0.12 % 15ML UDC (PERIDEX ORAL RINSE) MT SCH (07:46)
[2021-08-06] MEDS: ENOXAPARIN 40MG/0.4ML SYRINGE (J1650 PER 10MG) SC SCH (07:46)
[2021-08-06] MEDS ORDERED: DEXTROSE 50% 50 ML SYRINGE IV PRN (10:50)
[2021-08-06] MEDS ORDERED: GLUCAGON INJ 1MG VIAL SC PRN (10:50)
[2021-08-06] MEDS ORDERED: GLUCOSE 4GM CHEW TABLET PO PRN (10:50)
[2021-08-06] MEDS ORDERED: ASPI-226 PO (11:45)
[2021-08-06] MEDS ORDERED: BUDE10.2 INH (11:45)
[2021-08-06] MEDS ORDERED: GABA-1171 PO (11:45)
[2021-08-06] MEDS: HumaLOG INSULIN (NovoLOG) PER UNIT SC SCH ×2 (12:00→18:10)
[2021-08-06] MEDS ORDERED: BUDE0.5S6 INH (13:19)
[2021-08-06] MEDS ORDERED: INSUHUMDS SC (13:19)
[2021-08-06] MEDS ORDERED: HOME MED LIST COMPLETE! XX SCH (13:20)
[2021-08-06 13:49] LABS: C REACTIVE PROTEIN QUANTITATIV 2.94 MG/DL (0.00-0.30)
[2021-08-06 14:09] LABS: ERYTHROCYTE SEDIMENTATION RATE 36 mm/hr (0-20)
[2021-08-06 15:30] LABS: CK-MB VALUE MASS 2.7 NG/ML (<3.6); MB/CK RELATIVE INDEX 0.64 (< OR =4)
[2021-08-06 15:45] LABS: THYROID STIMULATING HORMONE 0.425 uIU/ML (0.358-3.740)
[2021-08-06] MEDS: ACETAMINOPHEN TAB 650MG DOSE (2X325MG) PO PRN (18:11)
[2021-08-06] MEDS ORDERED: ISOVUE-370 76% 100ML VIAL As Ordered ONE (18:24)
[2021-08-06] MEDS ORDERED: HumaLOG INSULIN (NovoLOG) PER UNIT SC SCH (21:00)
[2021-08-06 22:09] LABS: APPEARANCE, URINE CLEAR (CLEAR); BACTERIA, URINE AUTO NEGATIVE (NEGATIVE); BILIRUBIN, URINE AUTO NEGATIVE (NEGATIVE); BLOOD, URINE BLOOD 3+ (NEGATIVE); COLOR, URINE YELLOW (YELLOW); GLUCOSE, URINE (UA) AUTO NEGATIVE (NEGATIVE); KETONE, URINE AUTO NEGATIVE (NEGATIVE); LEUKOCYTE ESTERASE, URINE AUTO NEGATIVE (NEGATIVE); NITRITE, URINE AUTO NEGATIVE (NEGATIVE); PROTEIN, URINE AUTO NEGATIVE (NEGATIVE); RBC, URINE AUTO TNTC /HPF (0-3); SPECIFIC GRAVITY URINE AUTO 1.034 (1.002-1.035); SQUAMOUS EPITHELIAL CELL UR AU 0 /HPF (0-6); WBC, URINE AUTO 1 /HPF (0-3)
[2021-08-07] VITALS: BP 112/56
[2021-08-07 04:00] VITALS: BP 112/58
[2021-08-07 05:13] LABS: BASO % 0.3 % (0.0-1.0); EOS % 0.3 % (0.0-3.0); HEMATOCRIT 34.2 % (36.0-47.0); HEMOGLOBIN 10.7 g/dl (12.0-15.5); LYMPH # 1.2 10^3/uL (1.5-5.0); LYMPH % 20.2 % (24.0-44.0); MEAN CORPUSCULAR HEMOGLOBIN 26.4 pg (27.0-33.0); MEAN CORPUSCULAR HGB CONC 31.3 g/dl (32.0-36.5); MEAN CORPUSCULAR VOLUME 84.2 fl (80.0-96.0); MONO # 0.5 10^3/uL (0.0-0.8); MONO % 8.1 % (2.0-8.0); NEUTROPHILS # 4.2 10^3/uL (1.5-8.5); NEUTROPHILS % 69.9 % (36.0-66.0); PLATELET COUNT, AUTOMATED 172 10^3/uL (150-450); RED BLOOD COUNT 4.06 10^6/uL (4.00-5.40)
[2021-08-07 05:38] LABS: ALBUMIN 2.8 GM/DL (3.2-5.2); ALT/SGPT 203 U/L (12-78); BILIRUBIN,TOTAL 0.3 MG/DL (0.2-1.0); BLOOD UREA NITROGEN 8 MG/DL (7-18); CALCIUM LEVEL 8.2 MG/DL (8.5-10.1); CARBON DIOXIDE LEVEL 30 MEQ/L (21-32); CHLORIDE LEVEL 108 MEQ/L (98-107); CREATININE FOR GFR 0.61 MG/DL (0.55-1.30); GLOMERULAR FILTRATION RATE > 60.0 (>60); GLUCOSE, FASTING 135 MG/DL (70-100); MAGNESIUM LEVEL 2.2 MG/DL (1.8-2.4); POTASSIUM SERUM 3.8 MEQ/L (3.5-5.1); SODIUM LEVEL 141 MEQ/L (136-145); TOTAL PROTEIN 6.1 GM/DL (6.4-8.2)
[2021-08-07 08:11] VITALS: BP 130/72
[2021-08-07] MEDS: HumaLOG INSULIN (NovoLOG) PER UNIT SC SCH ×2 (08:14→12:56)
[2021-08-07] MEDS: ENOXAPARIN 40MG/0.4ML SYRINGE (J1650 PER 10MG) SC SCH (08:14)
[2021-08-07] MEDS ORDERED: ONDANSETRON 4MG/2ML VIAL IV PRN (10:25)
[2021-08-07] MEDS: ACETAMINOPHEN TAB 650MG DOSE (2X325MG) PO PRN (10:34)
[2021-08-07] MEDS ORDERED: INSUHUMDS SC (13:16)
[2021-08-07] MEDS ORDERED: PEN1MIS22 SC (13:16)
[2021-08-07] MEDS ORDERED: BASA100I SQ (13:16)
[2021-08-07] MEDS ORDERED: INSU1MIS20 SC (13:16)
[2021-08-07] MEDS ORDERED: LANC30MI XX (13:16)
[2021-08-07] MEDS ORDERED: GLUC1TES2 XX (13:16)
[2021-08-07] MEDS ORDERED: ONDA-83 PO (13:16)
== END 2021-08-07 14:09 | disposition home or self-care (01) | DRG 544 ==
LOC: M SDC 10:29 → M ICU 15:52 → M SDC 16:40 → M ICU 16:41
PROVIDERS: ADMIT Internal Medicine Pulmonary Disease; ATTEND Family Medicine
PROC: 0BH17EZ Insertion of Endotracheal Airway into Trachea, Via Natural or Artificial Opening (ICD-10-PCS; 2021-08-05)
PROC: 5A1935Z Respiratory Ventilation, Less than 24 Consecutive Hours (ICD-10-PCS; 2021-08-05)
PROC: 10D17ZZ Extraction of Products of Conception, Retained, Via Natural or Artificial Opening (ICD-10-PCS; principal; 2021-08-05 12:00)
DX: O03.8 Other and unspecified complications following complete or unspecified spontaneous abortion (principal); J96.01 Acute respiratory failure with hypoxia; E66.01 Morbid (severe) obesity due to excess calories; O02.1 Missed abortion; R74.01 Elevation of levels of liver transaminase levels; J95.4 Chemical pneumonitis due to anesthesia; J45.909 Unspecified asthma, uncomplicated; Z79.4 Long term (current) use of insulin; Z88.2 Allergy status to sulfonamides; Z88.8 Allergy status to other drugs, medicaments and biological substances; E11.9 Type 2 diabetes mellitus without complications

== ENCOUNTER → 2021-12-29 | Outpatient (CLI) | payer OTHER ==
[~2021-12-29] MED LIST changes: +ALBU2.5V10 INH; -ALBU83IN INH; +ASPI-226 PO; +BUDE0.5S6 INH; +BUDE10.2 INH; +GABA-1171 PO; +GLUC1TES2 XX; +INSU1MIS20 SC; +INSUHUMDS SC; +LANC30MI XX; -LIDOCAINE 1% MDV 20ML VIAL SQ PRN; -LR 1,000 ML IV ONE; +ONDA-83 PO; +PEN1MIS22 SC
== END ==
LOC: M SLEEP HO 12:07
PROVIDERS: ATTEND Internal Medicine Pulmonary Disease
DX: G47.30 Sleep apnea, unspecified (principal)

== ENCOUNTER → 2023-11-06 | Outpatient (REF) | payer OTHER ==
[~2023-11-06] MED LIST changes: +INSU100V19 SC; -INSURSD SC
== END ==
LOC: M SFHCDERM 17:55
PROVIDERS: ATTEND Physician Assistant
DX: L57.0 Actinic keratosis (principal)

== ENCOUNTER → 2023-11-28 | Outpatient (CLI) | payer OTHER ==
[~2023-11-28] MED LIST changes: +METHACHOLINE KIT (6 VIAL.NEB PREMIX) INH ONE
== END ==
LOC: M CARPUL 07:37
PROVIDERS: ATTEND Internal Medicine Pulmonary Disease
DX: R06.02 Shortness of breath (principal)
CPT/HCPCS: 94070; 95070; J7674